=== PATIENT | male | born 2000 | race Caucasian/White ===

== ENCOUNTER 2018-07-14 18:53 | Emergency (ER) | payer MEDICAID ==
[2018-07-14] MEDS: IBUPROFEN 600 MG TAB PO (22:49)
[2018-07-14] MEDS: DIPHTH/TET/ACEL PERTUSS (ADULT) 0.5 ML VIAL IM* (22:49)
== END 2018-07-14 23:13 | disposition home or self-care (01) ==
LOC: FTE 18:53
DX: S91.332A Puncture wound without foreign body, left foot, initial encounter (principal); W45.0XXA Nail entering through skin, initial encounter; Y92.9 Unspecified place or not applicable; Z23 Encounter for immunization
CPT/HCPCS: 90471; 90715; 99283-25